=== PATIENT | male | born 1965 | race Caucasian/White ===

== ENCOUNTER 2020-07-06 15:24 | Inpatient (IN) | payer SELFPAY ==
[2020-07-06] VITALS (7 sets, daily range): BP systolic 168–198; BP diastolic 102–126; BMI 27.6
[~2020-07-06] VITALS: Ht 185.4 cm; Wt 90.9 kg
[2020-07-06 16:01] LABS: APTT 24.2 SECONDS (22.8-39.4); CALC OSMOLALITY 277 mosm/kg (275-300); CALCIUM 9.2 mg/dL (8.5-10.1); CARBON DIOXIDE 25.4 mmol/L (21.0-32.0); CHLORIDE - SERUM 103 mmol/L (98-107); GLUCOSE 157 mg/dL (74-106); POTASSIUM - SERUM 3.2 mmol/L (3.5-5.1); SODIUM 137 mmol/L (136-145); UREA NITROGEN 15 mg/dL (7-18); eGFR NON AFRICAN AMERICAN 83 mL/min (90-120)
[2020-07-06 16:05] LABS: INR 1.15 (0.85-1.17); PROTIME 13.6 SECONDS (11.6-15.0)
[2020-07-06 16:13] LABS: BASOPHILS 0.3 % (0-2); EOSINOPHILS 0.4 % (0-7); HEMATOCRIT 49.4 % (42.0-54.0); IMMATURE GRANULOCYTES 0.3 % (0-5); LYMPHOCYTE ABS# 1.73 10x3/uL (1.32-3.57); LYMPHOCYTES 17.6 % (15-50); MCH 29.4 pg (26.0-34.0); MCHC 34.4 g/dL (31.0-37.0); MCV 85.3 fL (80.0-100.0); MEAN PLATELET VOLUME 9.7 fL (7.4-10.4); MONOCYTES 6.4 % (2-11); NEUTROPHIL ABS# 7.37 10x3/uL (1.78-5.38); PLATELET COUNT 180 10x3/uL (130-400); RBC 5.79 10x6/uL (4.20-6.10); RDW 13.4 % (11.5-14.5); WBC 9.8 10x3/uL (4.8-10.8)
[2020-07-06 16:41] LABS: ALKALINE PHOSPHATASE 58 U/L (30-120); ALT (SGPT) 42 U/L (10-68); BILIRUBIN - TOTAL 0.61 mg/dL (0.2-1.3); CREATINE KINASE 339 UL (21-232); MAGNESIUM - SERUM 2.1 mg/dL (1.8-2.4); PROTEIN - SERUM 8.3 g/dL (6.4-8.2); TROPONIN-I < 0.017 ng/mL (0.000-0.060)
--- NOTE | 2020-07-06 20:02 | NUR ---
DR. ENGLAND PAGED REGARDING CONSULT
--- NOTE | 2020-07-06 20:11 | NUR ---
DR. ENGLAND RETURNED PAGE AND IS AWARE OF CONSULT.
--- NOTE | 2020-07-06 21:15 | NUR ---
PAGED BENNY REGARDING ELEVATED BP
--- NOTE | 2020-07-06 21:20 | NUR ---
BENNY RETURNED PAGE
[2020-07-07] VITALS (14 sets, daily range): BP systolic 151–189; BP diastolic 92–124; Ht 185.4 cm; Wt 90.9 kg
--- NOTE | 2020-07-07 00:04 | NUR ---
I have reviewed this patient and I concur with the Shift Assessment completed by the Licensed Practical Nurse today this shift.
[2020-07-07 04:20] LABS: BASOPHILS 0.4 % (0-2); EOSINOPHILS 1.5 % (0-7); HEMATOCRIT 48.6 % (42.0-54.0); HEMOGLOBIN 16.5 g/dL (13.5-17.5); IMMATURE GRANULOCYTES 0.4 % (0-5); LYMPHOCYTE ABS# 2.48 10x3/uL (1.32-3.57); LYMPHOCYTES 25.7 % (15-50); MCV 85.4 fL (80.0-100.0); MEAN PLATELET VOLUME 10.2 fL (7.4-10.4); MONOCYTES 8.2 % (2-11); NEUTROPHIL ABS# 6.16 10x3/uL (1.78-5.38); NEUTROPHILS 63.8 % (40-80); PLATELET COUNT 203 10x3/uL (130-400); RBC 5.69 10x6/uL (4.20-6.10); RDW 13.6 % (11.5-14.5); WBC 9.7 10x3/uL (4.8-10.8)
[2020-07-07 05:08] LABS: ALBUMIN 3.6 g/dL (3.4-5.0); ALKALINE PHOSPHATASE 55 U/L (30-120); ALT (SGPT) 39 U/L (10-68); BILIRUBIN - TOTAL 0.69 mg/dL (0.2-1.3); CALC OSMOLALITY 280 mosm/kg (275-300); CALCIUM 8.8 mg/dL (8.5-10.1); CARBON DIOXIDE 26.8 mmol/L (21.0-32.0); CHLORIDE - SERUM 106 mmol/L (98-107); CHOL - HDL RATIO 3.9 ratio (2.3-4.9); CHOLESTEROL, TOTAL 166 mg/dL (0-200); CKMB 4.5 U/L (0.0-3.6); CREATINE KINASE 306 UL (21-232); GLUCOSE 111 mg/dL (74-106); HDL CHOLESTEROL 43 mg/dL (32-96); LDL CHOLESTEROL 106 mg/dL (0-100); LDL-HDL RATIO 2.5 ratio (1.5-3.5); MAGNESIUM - SERUM 2.1 mg/dL (1.8-2.4); PHOSPHOROUS 3.4 mg/dL (2.5-4.9); POTASSIUM - SERUM 3.1 mmol/L (3.5-5.1); PROTEIN - SERUM 7.8 g/dL (6.4-8.2); SODIUM 140 mmol/L (136-145); TRIGLYCERIDE 85 mg/dL (30-200); UREA NITROGEN 14 mg/dL (7-18); eGFR NON AFRICAN AMERICAN 83 mL/min (90-120)
[2020-07-07 05:09] LABS: TROPONIN-I < 0.017 ng/mL (0.000-0.060)
--- NOTE | 2020-07-07 06:15 | NUR ---
IV IN RIGHT WRIST INFATUATED NEW 20G PIV STARTED IN LEFT HAND. RIGHT WRIST PIV REMOVED CATH INTACT
--- NOTE | 2020-07-07 07:43 | NUR ---
PT CONFUSED AT THIS TIME TO SITUATION AND TRYING TO GET OUT OF BED. BED ALARM ON, AND PT ASKED TO LAY BACK DOWN IN BED, PT STATED HE WANTS WATER. PROVIDED ORAL CARE KIT AND HE IS NOW MORE CALM. WAITING FOR SPEECH EVAL. VSS. WILL CONTINUE PLAN OF CARE.
--- NOTE | 2020-07-07 08:35 | NUR ---
REHAB PRESCREEN: THANK YOU FOR THE REFERRAL. UNFORTUNATELY, PT HAS NO INSURANCE AND WE WILL BE UNABLE TO ACCEPT HIM INTO THE PROGRAM. TOSHIA MELARA RN CLINICAL LIAISON, INPATIENT REHAB
--- NOTE | 2020-07-07 09:21 | NUR ---
PT HAVING HTN, DR WANG HAS PLACED ORDERS REGARDING THIS. ALSO PT TOLERATED SIPS OF WATER AND ICE CHIPS WELL WITHOUT ANY S/S ASPIRATION. WILL CONTINUE PLAN OF CARE.
--- NOTE | 2020-07-07 10:21 | NUR ---
CARDIOLOGY CONSULT PER DR ENGLAND, SPOKE WITH ALY SHEETS. SHE STATED SHE WOULD BE BY TO SEE PT TODAY.
--- NOTE | 2020-07-07 11:09 | NUR ---
ALY, CARDIOLOGY POULTRY FARMER, HERE TO SEE PT. SHE STATED SHE WILL PLACE ORDERS REGARDING PTS HTN. ALSO PTS MOTHER AT BEDSIDE. UPDATES PROVIDED WELL SHE SPOKE WITH ALY. NO ACUTE DISTRESS NOTED. WILL CONTINUE PLAN OF CARE.
--- NOTE | 2020-07-07 11:41 | NUR ---
OFFERED CHG BATH TO PT. HE DECLINED STATED HE WANTED TO SLEEP
--- NOTE | 2020-07-07 11:50 | NUR ---
REPORT CALLED TO RECIEVING NURSE FOR PT TO TRANSFER TO ROOM 2236. WILL TRANSFER PT SHORTLY.
--- NOTE | 2020-07-07 12:44 | NUR ---
PT TRANSFERRED TO ROOM 2236 AT THIS TIME WITH ALL PERSONAL ITEMS VIA BED ACCOMPANIED BY HOSPITAL STAFF. NO ACUTE DISTRESS NOTED. NO FURTHER ACTIONS.
--- NOTE | 2020-07-07 12:44 | NUR ---
RECEIVED PATIENT TO ROOM, PATIENT IS VERY TIRED AND SLEEPING, IV TO LEFT FA SL, ORDERS FOR APRESOLINE, PT ALREADY ADMINISTERED DOSE AT 11, WILL START NEXT DOSE. NO OTHER NEEDS AT THIS TIME. COTNINUE WITH PLAN OF CARE
--- NOTE | 2020-07-07 13:17 | NUR ---
IV INSERTED, 20G PIV RIGHT HAND, WRAPPED WITH CHRISTOPHER.
--- NOTE | 2020-07-07 13:40 | NUR ---
PATIENT SISTER AT BEDSIDE, WANTS TO SPEAK WITH NURSE PRACTITIONER OR DOCTOR, SENT TEXT TO Romain LEO APN. CONTINUE WITH PLAN OF CARE
--- NOTE | 2020-07-07 16:10 | NUR ---
PATIENT BP IS 158/100 ADMINISTER SCHEDULED APRESOLINE
--- NOTE | 2020-07-07 18:10 | NUR ---
PATIENT IN BED WITH IV INTACT. NO COMPLAINTS OR SIGNS OF DISTRESS. CALL LIGHT WITHIN REACH.
--- NOTE | 2020-07-07 19:45 | NUR ---
RECEIVED BEDSIDE REPORT. DISORIENTATED TO SITUATION, PT LAYING IN BED. PIV TO RIGHT HAND, PATENT AND S/L, NO REDNESS OR SWELLING. RIGHT ARM WEAKNESS, DIFFICULTY SPEAKING. BED LOW, ALARM ON, CL IN REACH.
[2020-07-08] VITALS: BP 152/88
[2020-07-08 04:00] VITALS: BP 149/95
[2020-07-08 06:53] LABS: BASOPHILS 0.4 % (0-2); EOSINOPHILS 0.8 % (0-7); HEMATOCRIT 50.3 % (42.0-54.0); IMMATURE GRANULOCYTES 0.4 % (0-5); LYMPHOCYTE ABS# 2.63 10x3/uL (1.32-3.57); LYMPHOCYTES 23.2 % (15-50); MCHC 33.8 g/dL (31.0-37.0); MCV 85.8 fL (80.0-100.0); MEAN PLATELET VOLUME 10.9 fL (7.4-10.4); MONOCYTES 8.6 % (2-11); NEUTROPHIL ABS# 7.58 10x3/uL (1.78-5.38); NEUTROPHILS 66.6 % (40-80); PLATELET COUNT 214 10x3/uL (130-400); RBC 5.86 10x6/uL (4.20-6.10); WBC 11.4 10x3/uL (4.8-10.8)
[2020-07-08 07:05] LABS: ALBUMIN 3.7 g/dL (3.4-5.0); ALKALINE PHOSPHATASE 56 U/L (30-120); ALT (SGPT) 43 U/L (10-68); BILIRUBIN - TOTAL 0.93 mg/dL (0.2-1.3); CALC OSMOLALITY 275 mosm/kg (275-300); CALCIUM 9.1 mg/dL (8.5-10.1); CARBON DIOXIDE 23.6 mmol/L (21.0-32.0); CHLORIDE - SERUM 104 mmol/L (98-107); GLUCOSE 111 mg/dL (74-106); MAGNESIUM - SERUM 2.1 mg/dL (1.8-2.4); PHOSPHOROUS 2.9 mg/dL (2.5-4.9); POTASSIUM - SERUM 3.5 mmol/L (3.5-5.1); SODIUM 137 mmol/L (136-145); UREA NITROGEN 14 mg/dL (7-18); eGFR NON AFRICAN AMERICAN 83 mL/min (90-120)
--- NOTE | 2020-07-08 07:59 | NUR ---
PATIENT BP THIS MORNING IS 133/94, APRESOLINE SCHEDULED FOR 0800. PATIENT IS SLEEPING AND PLEASANTLY CONFUSED WHEN FIRST WAKING UP, PATIENT ATTEMPTS TO USE RESTROOM WITH OUT ASSISTANCE. ENCOURAGED HIM TO CALL FOR ASSISTANCE BECUASE OF HX OF FALLS, TECHNOLOGY TRAINER ASSISTED TO RESTROOM, NO NEEDS VOICED, IV IN RT HAND SL, SITE CDI, SCD'S NOT ON MAY BE MORE HARMFUL THAN HELPFUL AT THIS TIME WITH HIM JUMPING OUT OF BED TO USE THE RESTROOM. CL IN PLACE, NO NEEDS VOICED, PATIENT STILL STATES VERY SLEEPY AND SLEEPS MOST OF THE DAY. CONTINUE WITH PLAN OF CARE
[2020-07-08 08:38] VITALS: BP 133/94; BP 156/86
--- NOTE | 2020-07-08 11:32 | EC ---
PATIENT:IRVING HERZOG DATE OF SERVICE: 07/06/20 SEX: M MEDICAL RECORD: [id number] DATE OF : 67 LOCATION:[facility] AGE OF PATIENT: 55 ADMISSION DATE: 07/06/20 REFERRING PHYSICIAN: INTERPRETING PHYSICIAN: MANN JULIEN MD ECHOCARDIOGRAM REPORT ECHO CHARGES 4 ECHO COMPLETE Date: 07/07/20 CLINICAL DIAGNOSIS: HTN, RECENT CVA ECHOCARDIOGRAPHIC MEASUREMENTS (adult normal given) AC root (d.<3.7cm) 3.2 cm LV Septum d (<1.2 cm> 1.1 cm Valve Excursion 1.7 cm LV Septum (systole) 1.6 cm Left Atria (s.<4.0cm> 3.7 cm LVPW d(<1.2cm) 0.9 cm RV (d.<2.3cm) 2.9 cm LVPW (sytole) 1.1 cm LV diastole(<5.6CM) 5.5 cm MV E-F(>70mm/sec) cm LV systole 4.4 cm LVOT Diameter 1.9 cm MV exc.(>10mm) 1.0 cm Est.ejection fraction (50-75%) % DOPPLER: LVIT cm/sec A 121 cm/sec E 63 cm/sec LA cm/sec RVSP 21 mmHg LVOT 134 cm/sec AOP1/2T m/s Asc. Ao 121 cm/sec RVOT 71 cm/sec RA cm/sec PA 82 cm/sec AV Gradient Peak 5.9 mmHg AV Mean 3.5 mmHg AV Area 2.9 cm MV Gradient Peak 6.9 mmHg MV Mean 3.8 mmHg MV Area cm COMMENTS: Nutrition Tech: Rito RIVAS Business Intelligence Manager: 3 Dr. Herrera TAPE# Pericardial Effusion N DATE OF SERVICE: Adequate 2D, color-flow imaging, spectral Doppler, and M-Mode FINDINGS: No LVH. LV internal dimension is normal. Wall motion is normal. EF is greater than or equal to 55%. Aortic valve was tricuspid. No evidence of stenosis by Doppler interrogation. Left atrium is normal. Mitral valve shows no prolapse. Trivial MR. Right side is grossly normal. Trivial TR. TRANSINT:[id number] Voice Confirmation ID: [id number] DOCUMENT ID: [id number] ECHOCARDIOGRAM REPORT [id number] DANYIRVING NESBITT MANN JULIEN MD at 1132 CC: [id number] DICTATION DATE: 07/07/20 1338 RIG BUILDER: 07/07/20 1415 ADM IN [place] [id number] [place] [id number]
--- NOTE | 2020-07-08 11:58 | NUR ---
PATIETN SLEEPING ON RT SIDE, EVEN RISE AND FALL OF CHEST NO S/S OF DISTRESS, PT HAS APRESOLINE ORDERED, BOX WORKER WITH PT TODAY AND 9 OCLOCK WAS ADMINISTERED LATE, PER RN. DANIEL INSTRUCTOR, 12 OCLOCK DOSE WILL BE ADMINISTEED A LITTLE LATER. NO NEEDS AT THIS TIME, CONTINUE WITH PLAN OF CARE
--- NOTE | 2020-07-08 12:26 | NUR ---
CARE ASSUMED FROM BRYAN CUI. PT SITTING UP IN BED. CALL LIGHT WITH IN REACH.
[2020-07-08 13:20] VITALS: BP 145/95
--- NOTE | 2020-07-08 15:00 | NUR ---
WALKED W/ PT 175 FT.
--- NOTE | 2020-07-08 16:21 | NUR ---
OT NOTE: PT VERY LETHARGIC IN AM.. HOWEVER, IN PM, PT WAS AWAKE AND REQUESTING POP SICKLE. PT ABLE TO PERFORM SUPINE TO SIT WITH MIN ASSIST; A/AROM ACT WITH R UE; GROSS MOTOR TASKS WITH R HAND; WT BEARING ACT WHILE IN SITTING. PT REPORTS THAT HE STILL FEELS VERY TIRED, BUT WAS AGREEABLE TO ALL THERAPY. R UE IS WEAK BUT PT DOES HAVE SOME FUNCTIONAL MOVEMENT. VANESSA GALICIA, OTR/L [phone]
[2020-07-08 16:28] VITALS: BP 129/75
[2020-07-08 20:00] VITALS: BP 145/91
[2020-07-09] VITALS: BP 170/83
[2020-07-09 04:00] VITALS: BP 162/93; BP 170/83
[2020-07-09 06:17] LABS: BASOPHILS 0.4 % (0-2); EOSINOPHILS 2.6 % (0-7); HEMATOCRIT 47.2 % (42.0-54.0); HEMOGLOBIN 15.6 g/dL (13.5-17.5); IMMATURE GRANULOCYTES 0.4 % (0-5); LYMPHOCYTE ABS# 2.05 10x3/uL (1.32-3.57); LYMPHOCYTES 24.5 % (15-50); MCH 29.2 pg (26.0-34.0); MCHC 33.1 g/dL (31.0-37.0); MEAN PLATELET VOLUME 11.5 fL (7.4-10.4); MONOCYTES 11.2 % (2-11); NEUTROPHILS 60.9 % (40-80); PLATELET COUNT 205 10x3/uL (130-400); RBC 5.35 10x6/uL (4.20-6.10); RDW 14.1 % (11.5-14.5)
[2020-07-09 06:19] LABS: MCV 88.2 fL (80.0-100.0); WBC 8.4 10x3/uL (4.8-10.8)
[2020-07-09 06:35] LABS: ALBUMIN 3.2 g/dL (3.4-5.0); ALKALINE PHOSPHATASE 48 U/L (30-120); ALT (SGPT) 34 U/L (10-68); BILIRUBIN - TOTAL 0.59 mg/dL (0.2-1.3); CALC OSMOLALITY 281 mosm/kg (275-300); CALCIUM 8.6 mg/dL (8.5-10.1); CARBON DIOXIDE 24.9 mmol/L (21.0-32.0); CHLORIDE - SERUM 106 mmol/L (98-107); GLUCOSE 108 mg/dL (74-106); MAGNESIUM - SERUM 2.1 mg/dL (1.8-2.4); PHOSPHOROUS 3.3 mg/dL (2.5-4.9); POTASSIUM - SERUM 3.6 mmol/L (3.5-5.1); PROTEIN - SERUM 6.9 g/dL (6.4-8.2); SODIUM 139 mmol/L (136-145); eGFR NON AFRICAN AMERICAN 83 mL/min (90-120)
[2020-07-09 06:39] LABS: UREA NITROGEN 22 mg/dL (7-18)
--- NOTE | 2020-07-09 07:30 | NUR ---
RESTING IN BED WITH EYES CLOSED, EASILY AROUSED TO SPEECH. UP TO SIDE OF BED TO USE URINAL. ALERT BUT CONFUSED TO TIME, SITUATION, AND LOCATION AT TIMES. IV LOCATED TO LEFT HAND CURRENTLY SL. NO CURRENT S/S OF DISTRESS AT THIS TIME, DENIES NEEDS AT THIS TIME, WILL CONT TO MONITOR.
[2020-07-09 08:21] VITALS: BP 165/83
[2020-07-09 12:42] VITALS: BP 144/66
--- NOTE | 2020-07-09 13:12 | MORECARE ---
CASE MANAGEMENT DISCHARGE SUMMARY PATIENT: IRVING HERZOG UNIT: [id number] ADM DATE: 07/06/20 AGE: 55 : 67 SEX: M ROOM/BED: D.2236 AUTHOR: DINORAH,DOC PHYSICIAN: REFERRING PHYSICIAN: MATT NARANJO MD DATE OF SERVICE: 07/09/20 Case Management Discharge Planning Summary CT Patient Name: IRVING HERZOG Attending MD : MATT SANZ Medical Record: [id number] Encounter : [id number] Facility : [address] [place] [address] Admission Date : 119:06 Center Discharge Date : [address] [place] [address] Date of : DC Plan ID : [id number] Age/Sex/Martia : 55/ M/S Printed on : 07/09/20 13:11 CT DCP Review Details Anticipated D/C: Expected LOS : Case Status : INITIATED - Initial Reviewe: [id number] - Luana Bahena Initial Review: 07/06/2020 Planned Disposi: - Final Discharge: - Final Reviewer : : Final Review : Comments CT Entered Date Type Reviewer 07/09/20 13:02 CT Discharge Planning Luana Bahena Comment CM met with patient at bedside after obtaining verbal consent. CM discussed availability / needs of home health, REHAB and medical equipment. Patient states may need a walker at time of discharge. Would like to return home with mother if possible. He could benefit from inpatient rehab. I have faxed a referral to [facility]. His Medicaid is pending, waiting call back to see if [facility] will accept him in a Medicaid bed. CM to follow and assist as needed. DCP Focus Questions & Answers DCP Screen High Risk Factors: Poor health literacy DCP Evaluation Patient and/or caregiver agree upon recommended Yes discharge plan? Patient's current cognitive status: *Oriented to person, place, situation, time and present Patient gives permission to discuss discharge TAMRA JACKSON [phone] plans with: (name, relationship and number) Patient's ability to cope with chronic illness d. No chronic illness Alternate discharge plan (if recommended plan not HOME WITH FAMILY agreed upon by patient and/or caregiver): Functional screen assessment: New onset in difficulty in gait, balance, or transfer difficulties Physical Status: Independent with ADL's Is there a likelihood that the patient will Yes require additional services to return to the preadmission environment? Living Arrangements: Home with others Other Equipment comments: WALKER Results of this evaluation have been discussed Patient with: Patient with capacity for self-care or can be No cared for in same environment as prior to hospitalization? Living arrangements comments: WITH MOTHER Baseline cognitive status: *Oriented to person, place, situation, time and present Comments: REFERRAL SENT TO [facility] Preadmission facility can/cannot provide post Cannot - at higher level of care than hospital level of care needs: preadmission Pharmacy name(s): [facility] Does Patient have transportation to get home and Yes to follow-up medical appointments when discharged from the hospital? Comments: STATES SISTER WILL TRANSPORT Would patient like to participate in any Care Not applicable Coordination programs (if applicable): Equipment in use: None Mental health screen: No mental health history Resources / Services in place: None DCP Re-evaluation Would patient like to participate in any Care Not applicable Coordination programs (if applicable): Provider Networking Review Da : 07/10/19ervice Ty: Inpatient Rehab Reviewer : Luana Bahena Referral [id number] Provider : HESHAM Roberts Final Provi: N [facility] IRVING HERZOG MR#: [id number] /Age/Sex/Dkeyvw15-Fyu-85 /55/M /S Attending Physician Name: MATT NARANJO [id number] Patient Account:[id number] [facility] Page -1 of 1 All edits/amendments must be made on the electronic document DICTATION DATE: 07/09/20 131 FIBERGLASS FABRICATOR: PRAVEEN 07/09/20 1311 RPT#: [id number] DC DATE: STATUS: ADM IN [facility] [address] [place] [address] END OF REPORT
--- NOTE | 2020-07-09 13:57 | NUR ---
Nutrition follow-up: Pts diet has been advanced to regular mechanical soft wtih thin liquids 100% intake of last 3 meals Labs reviewed WT: 201# No bm charted; no stool softeners ordered Will continue to provide food choices and honor food prefenreces within diet restrictions. Will offer nutritional supplements with meals Follow-up: 07/14/20
--- NOTE | 2020-07-09 14:43 | NUR ---
OT NOTE: PT PERFORMED VERY WELL TODAY. P.T. ASSISTED WITH SOME OF TMT. PT WANTING TO GET A SHOWER AND WAS ABLE TO PERFORM BED MOB INCLUDING SUPINE TO SIT WITH MIN ASSIST; PRACTICED USING WALKER AND ASSISTED WITH WT BEARING THROUGH R UE. AMB TO SHOWER WITH WALKER AND MIN ASSIST; TRANSFER TO SHOWER BENCH WITH MIN ASSIST. PT ABLE TO PERFORM BATHING WITH OCCASSIONAL USE OF R UE AND ASSIST TO BATHE BACK.. MIN ASSIST AND USE OF GRAB BARS TO STAND AND CLEAN PERINEAL AREA. AMB FROM SHOWER TO EOB WITH MIN ASSIST. UE DRESSING WITH MOD ASSIST; DONNED SOCKS WITH MIN/MOD ASSIST; BRUSHED HAIR WITH MOD ASSIST; ABLE TO STAND AT SINK AND PERFORM ORAL CARE WITH MIN ASSIST FOR BALANCE. EDUCATED PT ON USING R HAND MUCH POSSIBLE THROUGHOUT THE DAY. SPEECH IS MUCH MORE INTELLIGABLE TODAY, HOWEVER, PT ALSO MORE LABILE TODAY. VANESSA GALICIA, OTR/L [phone]
--- NOTE | 2020-07-09 16:27 | NUR ---
OT NOTE: PT COMPLETED VARIOUS GROSS MOTOR ACTIVITES USING RUE. PT COMPLETED WT BEARING OF RUE WHILE SEATED AT EOB. PT DONNED SOCKS WITH MIN A. . [phone] THANK YOU,JOYCE SELBY
[2020-07-09 17:39] VITALS: BP 183/100
--- NOTE | 2020-07-09 19:45 | NUR ---
RECEIVED BEDSIDE REPORT. PT LAYING IN BED EYES CLOSED, EVEN RESPIRATIONS. PIV TO LEFT WRIST, PATENT AND INFUSING, NO REDNESS OR SWELLING. PT CONFUSED AND AMBULATES WITH ASSIST ONLY. BED LOW, ALARM ON, CL IN REACH.
[2020-07-09 20:00] VITALS: BP 146/86
[2020-07-10] VITALS: BP 145/75
[2020-07-10 04:00] VITALS: BP 179/87
[2020-07-10 06:10] LABS: BASOPHILS 0.5 % (0-2); EOSINOPHILS 2.7 % (0-7); HEMATOCRIT 47.6 % (42.0-54.0); HEMOGLOBIN 15.8 g/dL (13.5-17.5); IMMATURE GRANULOCYTES 0.3 % (0-5); LYMPHOCYTE ABS# 2.52 10x3/uL (1.32-3.57); LYMPHOCYTES 28.4 % (15-50); MCH 29.4 pg (26.0-34.0); MCHC 33.2 g/dL (31.0-37.0); MCV 88.5 fL (80.0-100.0); MEAN PLATELET VOLUME 11.4 fL (7.4-10.4); MONOCYTES 8.6 % (2-11); NEUTROPHIL ABS# 5.28 10x3/uL (1.78-5.38); NEUTROPHILS 59.5 % (40-80); PLATELET COUNT 209 10x3/uL (130-400); RBC 5.38 10x6/uL (4.20-6.10); RDW 14.1 % (11.5-14.5); WBC 8.9 10x3/uL (4.8-10.8)
[2020-07-10 06:21] LABS: ALBUMIN 3.2 g/dL (3.4-5.0); BILIRUBIN - TOTAL 0.38 mg/dL (0.2-1.3); CALCIUM 8.5 mg/dL (8.5-10.1); CARBON DIOXIDE 25.1 mmol/L (21.0-32.0); CREATININE - SERUM 1.1 mg/dL (0.6-1.3); PHOSPHOROUS 3.6 mg/dL (2.5-4.9); PROTEIN - SERUM 6.9 g/dL (6.4-8.2)
[2020-07-10 06:39] LABS: ANION GAP 11.6 mmol/L (8-16); POTASSIUM - SERUM 3.7 mmol/L (3.5-5.1)
[2020-07-10 08:02] VITALS: BP 163/93
[2020-07-10] MEDS ORDERED: TOPROL XL50 MG PO (10:05)
[2020-07-10] MEDS ORDERED: LIPITOR20 MG PO (10:05)
[2020-07-10] MEDS ORDERED: PLAVIX75 MG PO (10:05)
[2020-07-10] MEDS ORDERED: K-DUR20 MEQ PO (10:06)
[2020-07-10] MEDS ORDERED: Altace PO (10:06)
--- NOTE | 2020-07-10 11:04 | NUR ---
RX FOR ALTACE NOT E-SCRIBED. CALLED 30 DAY SUPPLY TO [facility], SPOKE WITH WAYNE CARL, PHARMACIST.
--- NOTE | 2020-07-10 11:32 | NUR ---
PATIENT REQUESTED FOR IV TO BE REMOVED AFTER ADMINISTRATION OF APRESOLINE, REMOVED IV WITH CATHETER INTACT, NO OTHER NEEDS VOICED, CALLING PATIENT SISTER TO REQUEST SHE BRING HIM CLOTHES CONTINUE WITH PLAN OF CARE UNTIL PATIENT DC
--- NOTE | 2020-07-10 12:46 | MORECARE ---
CASE MANAGEMENT DISCHARGE SUMMARY PATIENT: IRVING HERZOG UNIT: [id number] ADM DATE: 07/06/20 AGE: 55 : 67 SEX: M ROOM/BED: D.2236 AUTHOR: DINORAH,DOC PHYSICIAN: REFERRING PHYSICIAN: MATT NARANJO MD DATE OF SERVICE: 07/10/20 Case Management Discharge Planning Summary CT Patient Name: IRVING HERZOG Attending MD : MATT SANZ Medical Record: [id number] Encounter : [id number] Facility : [address] [place] [address] Admission Date : 119:06 Center Discharge Date : [address] [place] [address] Date of : DC Plan ID : [id number] Age/Sex/Martia : 55/ M/S Printed on : 07/10/20 12:45 CT DCP Review Details Anticipated D/C: Expected LOS : Case Status : INITIATED - Initial Reviewe: [id number] - Luana Bahena Initial Review: 07/06/2020 Planned Disposi: - Final Discharge: - Final Reviewer : : Final Review : Comments CT Entered Date Type Reviewer 07/10/20 12:23 CT Discharge Planning Luana Bahena Comment Spoke with patient's sister Yamilex today. She lives 2 houses down from him and her mother lives in same house with him. Unable to get him approved for inpatient rehab due to no active insurance. He has a walker at home per the sister. He has a good support group. Anticipate dc to home today after sister gets here. CM to follow and assist as needed. 07/09/20 13:02 CT Discharge Planning Luana Richards CM met with patient at bedside after obtaining verbal consent. CM discussed availability / needs of home health, REHAB and medical equipment. Patient states may need a walker at time of discharge. Would like to return home with mother if possible. He could benefit from inpatient rehab. I have faxed a referral to [facility]. His Medicaid is pending, waiting call back to see if [facility] will accept him in a Medicaid bed. CM to follow and assist as needed. DCP Focus Questions & Answers DCP Screen High Risk Factors: Poor health literacy DCP Evaluation Patient and/or caregiver agree upon recommended Yes discharge plan? Patient's current cognitive status: *Oriented to person, place, situation, time and present Patient gives permission to discuss discharge TAMRA JACKSON [phone] plans with: (name, relationship and number) Patient's ability to cope with chronic illness d. No chronic illness Alternate discharge plan (if recommended plan not HOME WITH FAMILY agreed upon by patient and/or caregiver): Functional screen assessment: New onset in difficulty in gait, balance, or transfer difficulties Physical Status: Independent with ADL's Is there a likelihood that the patient will Yes require additional services to return to the preadmission environment? Living Arrangements: Home with others Other Equipment comments: WALKER Results of this evaluation have been discussed Patient with: Patient with capacity for self-care or can be No cared for in same environment as prior to hospitalization? Living arrangements comments: WITH MOTHER Baseline cognitive status: *Oriented to person, place, situation, time and present Comments: [facility] Preadmission facility can/cannot provide post Cannot - at higher level of care than hospital level of care needs: preadmission Pharmacy name(s): [facility] Does Patient have transportation to get home and Yes to follow-up medical appointments when discharged from the hospital? Comments: STATES SISTER WILL TRANSPORT Would patient like to participate in any Care Not applicable Coordination programs (if applicable): Equipment in use: None Mental health screen: No mental health history Resources / Services in place: None DCP Re-evaluation Would patient like to participate in any Care Not applicable Coordination programs (if applicable): Provider Networking Review Da : 07/10/19ervice Ty: Inpatient Rehab Reviewer : Luana Bahena Referral [id number] Provider : HESHAM Roberts Final Provi: N [facility] IRVING HERZOG MR#: [id number] /Age/Sex/Lyicgg87-Bkw-08 /55/M /S Attending Physician Name: MATT NARANOJ [id number] Patient Account:[id number] [facility] Page -1 of 1 All edits/amendments must be made on the electronic document DICTATION DATE: 07/10/201244 FOOD CASHIER: PRAVEEN 07/10/201244 RPT#: [id number] DC DATE: STATUS: ADM IN [facility] [address] [place] [address] END OF REPORT
--- NOTE | 2020-07-10 15:41 | NUR ---
OT NOTE: PT REQUIRED MIN A FOR FLORIAN SOCKS. PT COMPLETED HAIR GROOMING WITH SETUP. PT COMPLETED ADL MOB WITH CGA USING RW. [id number] STORM KEATING COTA
--- NOTE | 2020-07-11 17:56 | MORECARE ---
CASE MANAGEMENT DISCHARGE SUMMARY PATIENT: IRVING HERZOG UNIT: [id number] ADM DATE: 07/06/20 AGE: 55 : 67 SEX: M ROOM/BED: D.2236 AUTHOR: DINORAH,DOC PHYSICIAN: REFERRING PHYSICIAN: MATT NARANJO MD DATE OF SERVICE: 07/11/20 Case Management Discharge Planning Summary CT Patient Name: IRVING HERZOG Attending MD : MATT SANZ Medical Record: [id number] Encounter : [id number] Facility : [address] [place] [address] Admission Date : 119:06 Center Discharge Date : 07/10/[address] [place] [address] Date of : DC Plan ID : [id number] Age/Sex/Martia : 55/ M/S Printed on : 07/11/20 17:54 CT DCP Review Details Anticipated D/C: Expected LOS : Case Status : INITIATED - Initial Reviewe: [id number] - Luana Bahena Initial Review: 07/06/2020 Planned Disposi: - Final Discharge: - Final Reviewer : : Final Review : Comments CT Entered Date Type Reviewer 07/10/20 12:23 CT Discharge Planning Luana Bahena Comment Spoke with patient's sister Yamilex today. She lives 2 houses down from him and her mother lives in same house with him. Unable to get him approved for inpatient rehab due to no active insurance. He has a walker at home per the sister. He has a good support group. Anticipate dc to home today after sister gets here. CM to follow and assist as needed. 07/09/20 13:02 CT Discharge Planning Luana Bahena Comment CM met with patient at bedside after obtaining verbal consent. CM discussed availability / needs of home health, REHAB and medical equipment. Patient states may need a walker at time of discharge. Would like to return home with mother if possible. He could benefit from inpatient rehab. I have faxed a referral to [facility]. His Medicaid is pending, waiting call back to see if [facility] will accept him in a Medicaid bed. CM to follow and assist as needed. DCP Focus Questions & Answers DCP Screen High Risk Factors: Poor health literacy DCP Evaluation Patient and/or caregiver agree upon recommended Yes discharge plan? Patient's current cognitive status: *Oriented to person, place, situation, time and present Patient gives permission to discuss discharge TAMRA JACKSON [phone] plans with: (name, relationship and number) Patient's ability to cope with chronic illness d. No chronic illness Alternate discharge plan (if recommended plan not HOME WITH FAMILY agreed upon by patient and/or caregiver): Functional screen assessment: New onset in difficulty in gait, balance, or transfer difficulties Physical Status: Independent with ADL's Is there a likelihood that the patient will Yes require additional services to return to the preadmission environment? Living Arrangements: Home with others Other Equipment comments: WALKER Results of this evaluation have been discussed Patient with: Patient with capacity for self-care or can be No cared for in same environment as prior to hospitalization? Living arrangements comments: WITH MOTHER Baseline cognitive status: *Oriented to person, place, situation, time and present Comments: [facility] Preadmission facility can/cannot provide post Cannot - at higher level of care than hospital level of care needs: preadmission Pharmacy name(s): [facility] Does Patient have transportation to get home and Yes to follow-up medical appointments when discharged from the hospital? Comments: STATES SISTER WILL TRANSPORT Would patient like to participate in any Care Not applicable Coordination programs (if applicable): Equipment in use: None Mental health screen: No mental health history Resources / Services in place: None DCP Re-evaluation Would patient like to participate in any Care Not applicable Coordination programs (if applicable): Provider Networking Review Da : 07/10/19ervice Ty: Inpatient Rehab Reviewer : Luana Bahena Referral [id number] Provider : HESHAM Roberts Final Provi: [facility] IRVING HERZOG MR#: [id number] /Age/Sex/Imyghm06-Vag-43 /55/M /S Attending Physician Name: MATT NARANJO [id number] Patient Account:[id number] [facility] Page -1 of 1 All edits/amendments must be made on the electronic document DICTATION DATE: 07/11/201753 PIGMENT SUPPLIER: PRAVEEN 07/11/201753 RPT#: [id number] DC DATE:07/10/20 STATUS: DIS IN [facility] [address] [place] [address] END OF REPORT
== END 2020-07-10 14:56 | disposition home or self-care (01) | DRG 66 ==
LOC: D.ER 15:24 → D.ICU 19:06 → D.MS 19:06
PROVIDERS: Emergency Medicine; ADMIT Emergency Medicine; ATTEND Emergency Medicine
DX: I63.9 Cerebral infarction, unspecified (principal); I16.0 Hypertensive urgency; E87.6 Hypokalemia; Z72.0 Tobacco use